=== PATIENT | female | born 1965 | race Caucasian/White ===

== ENCOUNTER 2024-10-22 22:20 | Emergency (ER) | payer MEDICAID, SELFPAY ==
[2024-10-22 22:25] VITALS: BP 133/77; PULSE 67; TEMP 36.5; O2SAT 97; BMI 26.5
--- NOTE | 2024-10-22 22:31 | ECG_ITS ---
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
--- NOTE | 2024-10-22 22:53 | ED.GENADUL1 ---
HPI HPI - General Adult General Chief complaint: Fall Stated complaint: FALL Time Seen by Provider: 10/22/24 22:31 Source: patient Mode of arrival: ambulance History of Present Illness HPI narrative: 59-year-old female to the emergency department chief complaint of fall. Patient reports she had a mechanical fall at her senior living today. She fell on her right side. She hit her head on the ground. She denies blood thinners. She denies any headache, vision changes, numbness, weakness, tingling. She denies any neck or back pain. No extremity injuries. She reports she has chronic pain in her lower back and right knee which are unchanged today. She declines any pain medication. Related Data Allergies Allergy/AdvReac Type Severity Reaction Status Date / Time erythromycin base Allergy Mild Hives Verified 10/22/24 22:25 Opioid HPI Opioid Management Most Recent Opioid Data: No Data to Display Review of Systems ROS Status of ROS 10 or more systems reviewed and unremarkable except as noted in history and below PFSH PFSH Social History Little interest or pleasure in doing things: not at all Feeling down, depressed, or hopeless: not at all Exam Narrative Exam Narrative: Primary Survey Airway Intact Lung sounds clear and equal bilaterally Pulses full and equal to femoral, radial, and dorsalis pedis bilaterally Heart regular rate and rhythm Skin warm, dry, pink GCS 15 Movement and sensation intact to all extremities Patient Fully Exposed. Small area of ecchymosis to the right frontal region. Secondary Survey General: GCS 15; Alert HEENT: Normal area of ecchymosis to the right frontal region.; Facial bones stable; Eyes normal inspection, Pupils round, 4-2mm blt; No evidence of oropharyngeal trauma; No blood in the nares or septal hematoma; Tympanic Membranes intact, no hemotympanum or drainage Neck: Normal inspection; no midline cervical tenderness; No tracheal deviation; No JVD Resp: Normal breath sounds, no wheeze or crackles; No chest wall tenderness, crepitus, or subcutaneous emphysema; No visible evidence of chest wall trauma; Chest rise symmetric; No respiratory distress Heart: Heart rate and rhythm regular; Carotid, radial, femoral, dorsalis pedis pulses +2 and equal bilaterally; No Murmurs Abdomen: Soft; Non-tender No ecchymosis or visible wounds to abdominal wall; No distention, guarding, rigidity, or rebound; Pelvis stable, no pain on compression MSK: All major joints with normal ROM. No deformities. No bony tenderness. No tenderness or step-offs to palpation of thoracic or lumbar spine; No ecchymosis or wounds to upper or lower back Neuro: Alert and oriented; Sensation intact and symmetric bilaterally; muscle strengths symmetric bilaterally in the upper and lower extremities. Skin: Color normal; No rash; Warm; Dry Constitutional Vital Signs, click to edit/add: Last Vital Signs Temp 97.7 F 10/22/24 22:25 Pulse 67 10/22/24 22:25 Resp 16 10/22/24 22:25 BP 133/77 10/22/24 22:25 Pulse Ox 97 10/22/24 22:25 O2 Del Method Room Air 10/22/24 22:25 Course Vital Signs Vital signs: Vital Signs Temperature 97.7 F 10/22/24 22:25 Pulse Rate 67 10/22/24 22:25 Respiratory Rate 16 10/22/24 22:25 Blood Pressure 133/77 10/22/24 22:25 Pulse Oximetry 97 10/22/24 22:25 Oxygen Delivery Method Room Air 10/22/24 22:25 Temperature 97.7 F 10/22/24 22:25 Pulse Rate 67 10/22/24 22:25 Respiratory Rate 16 10/22/24 22:25 Blood Pressure 133/77 10/22/24 22:25 Pulse Oximetry 97 10/22/24 22:25 Oxygen Delivery Method Room Air 10/22/24 22:25 Medical Decision Making MDM Narrative Medical decision making narrative: 59-year-old female with mechanical fall from senior living. Vital stable, the patient is afebrile. Small amount of bruising to the right brow. No other acute findings. No report was received from her facility, several calls were attempted but there was no answer. History provided by EMS and the patient. At baseline per EMS report. Lab work unremarkable. Chest x-ray with no acute findings CT head: No acute findings CT cervical spine: No acute finding Patient will be discharged back to her facility. Patient agrees with this plan. Return precautions were discussed. All questions were answered. The patient was discharged home. Medical Records Medical records reviewed: Yes I reviewed the patient's medical records Lab Data Lab results reviewed: Yes I reviewed the patient's lab results Labs: Lab Results 10/22/24 10/22/24 Range/Units 22:50 23:59 WBC 9.0 (4.0-11.0) 10^3/uL RBC 4.95 (4.20-5.40) 10^6/uL Hgb 10.5 L (12.0-16.0) g/dL Hct 36.0 (36.0-48.0) % MCV 72.7 L (81.0-99.0) fL MCH 21.2 L (26.7-34.0) pg MCHC 29.2 L (29.9-35.2) g/dL RDW 19.7 H (11.0-15.0) % Plt Count 381 (150-450) 10^3/uL MPV 10.6 (9.5-13.5) fL Neut % (Auto) 53.1 (43.0-75.0) % Lymph % (Auto) 34.4 (20.5-60.0) % [place] % (Auto) 10.2 (1.7-12.0) % Eos % (Auto) 1.1 (0.9-7.0) % Baso % (Auto) 1.0 (0.2-2.0) % Neut # (Auto) 4.8 (1.4-6.5) 10^3/uL Lymph # (Auto) 3.1 (1.2-3.8) 10^3/uL [place] # (Auto) 0.9 H (0.3-0.8) 10^3/uL Eos # (Auto) 0.1 (0.0-0.7) 10^3/uL Baso # (Auto) 0.1 (0.0-0.1) 10^3/uL Abs Immat Gran (auto) 0.02 (0.00-0.03) 10^3/uL Imm/Tot Granulo (auto) 0.2 (0.0-0.5) % Sodium 137 (136-145) mmol/L Potassium 4.3 (3.5-5.1) mmol/L Chloride 104 (98-107) mmol/L Carbon Dioxide 26.3 (21.0-32.0) mmol/L Anion Gap 11.0 BUN 13.0 (7.0-18.0) mg/dL Creatinine 0.91 (0.55-1.02) mg/dL Est GFR ( Amer) >60 (>=60 mL/min/1.73m^2) Est GFR (Non-Af Amer) >60 (>=60 mL/min/1.73m^2) BUN/Creatinine Ratio 14.3 Glucose 99 (74-106) mg/dL Calcium 9.0 (8.5-10.1) mg/dL Urine Color Yellow (YELLOW) Urine Clarity Sl cloudy (CLEAR) Urine pH 6.5 (5.0-9.0) Ur Specific [place] 1.020 (1.005-1.025) Urine Protein Negative (NEG/TRACE) mg/dL Urine Glucose (UA) Negative (NEGATIVE) mg/dL Urine Ketones Trace A (NEGATIVE) mg/dL Urine Occult Blood Negative (NEGATIVE) Urine Nitrite Negative (NEGATIVE) Urine Bilirubin Negative (NEGATIVE) Urine Urobilinogen 0.2 (0.2-1.0) EU/dL Ur Leukocyte Esterase Trace A (NEGATIVE) Urine RBC 0-2 (0-2) #/HPF Urine WBC 2-5 A (NONE SEEN) #/HPF Ur Squamous Epith Cells Few A (NONE/RARE) #/LPF Urine Crystals None seen (None Seen) #/HPF Amorphous Sediment Few Urine Bacteria None seen (NONE SEEN) #/HPF Urine Casts None seen (NONE SEEN) #/LPF Urine Mucus Small A (NONE SEEN) Ur Culture Indicated? No Imaging Data CT scan - head: Attestation: I have reviewed the pertinent imaging results. Radiologist's impression: Documents in PACS ECG Data Attestation: I personally reviewed and interpreted this ECG as follows: (Normal sinus rhythm at a rate of 69. No STEMI. Normal QTc at 439.) Discharge Plan Discharge Chief Complaint: Fall Clinical Impression: Accidental fall, Closed head injury Patient Disposition: Home, Self-Care Time of Disposition Decision: 00:40 Condition: Good Mode of Transportation: Private Vehicle Print Language: Moldovan Instructions: Head Injury (ED), Fall Prevention (ED) Additional Instructions: Call the office of your primary care doctor to arrange for follow-up within the above-stated timeframe. Your ED visit was focused on your acute issue and does not replace primary care. You should review your labs, imaging, and diagnoses from this ED visit with your primary care physician. There may be non-emergent/ incidental findings that need further evaluation. You should review your vital signs including blood pressure with your PCP. If you were prescribed medications you should discuss possible side-effects and drug interactions with your pharmacist. Call 911 or go to the nearest Emergency Department if you develop any new or worsening symptoms. Seek immediate medical attention if you develop: new or worsening headache, nausea, vomiting, confusion, weakness, loss of motion in your arms or legs, loss of control of your urine or stool, difficulty waking from sleep, or any new or worsening symptoms. Referrals: Earnestine Lopez NP [Primary Care Provider] - 1 week
[2024-10-22 23:12] LABS: Basophils Absolute Auto 0.1 10^3/uL (0.0-0.1); Eosinophils Absolute Auto 0.1 10^3/uL (0.0-0.7); Eosinophils Percent Auto 1.1 % (0.9-7.0); Hemoglobin 10.5 g/dL (12.0-16.0); Immature Granulocytes Abs Auto 0.02 10^3/uL (0.00-0.03); Immature Granulocytes Pct Auto 0.2 % (0.0-0.5); Lymphocytes Absolute Auto 3.1 10^3/uL (1.2-3.8); Lymphocytes Percent Auto 34.4 % (20.5-60.0); Mean Corpuscular HGB Conc 29.2 g/dL (29.9-35.2); Mean Corpuscular Hemoglobin 21.2 pg (26.7-34.0); Mean Corpuscular Volume 72.7 fL (81.0-99.0); Mean Platelet Volume 10.6 fL (9.5-13.5); Monocytes Absolute Auto 0.9 10^3/uL (0.3-0.8); Monocytes Percent Auto 10.2 % (1.7-12.0); Neutrophils Absolute Auto 4.8 10^3/uL (1.4-6.5); Neutrophils Percent Auto 53.1 % (43.0-75.0); Platelet Count 381 10^3/uL (150-450); Red Blood Count 4.95 10^6/uL (4.20-5.40); Red Cell Distribution Width 19.7 % (11.0-15.0)
[2024-10-22 23:22] LABS: BUN Creatinine Ratio 14.3; Carbon Dioxide 26.3 mmol/L (21.0-32.0); Chloride 104 mmol/L (98-107); Estimated GFR (African America >60 (>=60 mL/min/1.73m^2); Estimated GFR (Non-African Ame >60 (>=60 mL/min/1.73m^2); Glucose 99 mg/dL (74-106); Potassium 4.3 mmol/L (3.5-5.1); Sodium 137 mmol/L (136-145)
[2024-10-22] MEDS: OXYCODONE HCL/ACETAMINOPHEN 5MG/325MG 1 TAB PO (23:40)
[2024-10-23 00:10] LABS: Bilirubin Urine NEGATIVE (NEGATIVE); Blood Urine NEGATIVE (NEGATIVE); Clarity Urine SL CLOUDY (CLEAR); Color Urine YELLOW (YELLOW); Glucose Urine UA NEGATIVE (NEGATIVE); Ketones Urine TRACE mg/dL (NEGATIVE); Leukocyte Esterase Urine TRACE (NEGATIVE); Nitrite Urine NEGATIVE (NEGATIVE); Protein Urine NEGATIVE (NEG/TRACE); Urobilinogen Urine 0.2 EU/dL (0.2-1.0); pH Urine 6.5 (5.0-9.0)
[2024-10-23 00:19] LABS: RBC Urine 0-2 #/HPF (0-2)
[2024-10-23 00:20] LABS: Bacteria Urine NONE SEEN #/HPF (NONE SEEN); Crystals Seen? None Seen #/HPF (None Seen); Mucus Urine SMALL (NONE SEEN); Squamous Epithelial Cell Urine FEW #/LPF (NONE/RARE)
[2024-10-23 00:22] LABS: Amorphous Sediment Urine FEW; Cast Seen? NONE SEEN #/LPF (NONE SEEN); Urine Culture Indicated NO
== END 2024-10-23 02:31 | disposition home or self-care (01) ==
PROVIDERS: Emergency Provider Student in an Organized Health Care Education/Training Program; PCP Nurse Practitioner
DX: S09.8XXA Other specified injuries of head, initial encounter (principal); W18.39XA Other fall on same level, initial encounter
CPT/HCPCS: 36415; 70450; 71045; 72125; 80048; 81001; 85025; 93005; 99285